=== PATIENT | female | born 1950 | race Caucasian/White ===

== ENCOUNTER 2022-10-01 17:43 | Inpatient (IN) | payer OTHER ==
--- OUTSIDE RECORDS SUMMARY | 2022-10-01 18:12 | XMS REPORT | Continuity of Care Document ---
:1950 Author Organization [facility] t Address [address] [facility] [address] [facility] [address] [place] [address] Care Team Providers Name Role Phone Sarah Bynum Attending Clinician Unavailable Payers Payer Name Policy Type Policy Number Effective Date Expiration Date S ource MEDICARE MB [id number] 2020 [facility] NOVITAS 00:00:[address] [facility] C1 [id number] 2020 [facility] and Accident 00:00:[address] [facility] MEDICARE MB [id number] 2020 [facility] NOVITAS 00:00:00 - [facility] [place] [id number] 2020 [facility] Life and 00:00:[facility] Problems Condition Condition Condition Status Onset Resolution Last Treating Co mments Source Name Details Category Date Date Treatment Clinician Date Status Migraine Problem Common migrainosu with Spirit s status - [facility] unspecifie d migraine type Anxiety Anxiety Problem [facility] Visual Visual Problem Common floaters, floaters, Spir it bilateral bilateral - CH I [facility] Gastroesop GERD Problem Commo n hageal (gastroeso Spirit reflux phageal - CHI disease reflux St disease) [facility] Elevated Elevated Problem Commo n blood-pres blood [facility] sure pressure - [facility] reading reading [facility] diagnosis [facility] [place] hypertensi on Left Left Problem Common bundle bundle Spirit branch branch - [facility] block block [facility] [id number] Adult Problem Common general [facility] medical - [facility] exam [facility] [id number] PVC Problem Common (premature Spirit ventricula - [facility] r [facility] Vitamin D Vitamin D Problem Com mon deficiency deficiency Sp dinah [facility] [id number] Depression Problem Co mmon with [facility] anxiety [facility] [id number] Seasonal Problem Comm on allergies [facility] [id number] Multiple Problem Comm on allergies [facility] Gastroesop Gastroesop Problem C ommon hageal hageal [facility] reflux reflux - [facility] disease disease [facility] esophagiti esophagiti Ne dical [facility] [id number] Gynecologi Problem Co mmon c exam [facility] normal [facility] [id number] Panic Problem Common attacks [facility] Allergies, Adverse Reactions, Alerts This patient has no known allergies or adverse reactions. Social History Social Habit Start Date Stop Date Quantity Comments Source History of Tobacco Use Co mmon [facility] Sex Assigned At Com mon [facility] Smoking Status Start Date Stop Date Source Never Smoker [facility] Medications Ordered Filled Start Stop Current Ordering Indication Dosage Frequency Signature Comments Components Source Medication Medication Date Date Medication? Clinician (SIG) Name Name Xanax 0.25 Xanax 0.25 2021-06 No 1{table QD Xanax 0.25 MG MG 1-10 t} MG 00:00: 00 Xanax 0.25 Xanax 0.25 2021-06 No 1{table QD Xanax 0.25 MG MG 1-10 t} MG 00:00: 00 Xanax 0.25 Xanax 0.25 2020-06 No 1{table QD Xanax 0.25 MG MG 1-05 t} MG 00:00: 00 Calcium Calcium No Calcium Bystolic Bystolic No 1{table QD Bystolic 2.5 MG 2.5 MG t} 2.5 MG Vitamin B-6 Vitamin B-6 No Vitamin B-6 Vitamin B Vitamin B No Vitamin B 12 12 12 Fish Oil Fish Oil No Fish Oil Xanax 0.25 Xanax 0.25 No 1{table QD Xanax 0.25 MG MG t} MG Protonix 40 Protonix 40 No Protonix MG MG 40 MG Pantoprazol Pantoprazol No Pantoprazo e Sodium 40 e Sodium 40 le Sodium MG MG 40 MG buPROPion buPROPion No buPROPion HCl ER (XL) HCl ER (XL) HCl ER 150 MG 150 MG (XL) 150 MG Calcium Calcium No Calcium Vitamin C Vitamin C No Vitamin C CoQ-10 CoQ-10 No CoQ-10 Zinc Zinc No Zinc Cymbalta 30 Cymbalta 30 No 1{capsu QD Cymbalta MG MG le} 30 MG Magnesium Magnesium No Magnesium Bystolic Bystolic No 1{table QD Bystolic 2.5 MG 2.5 MG t} 2.5 MG Vitamin D3 Vitamin D3 No Vitamin D3 buPROPion buPROPion No 1{table QD buPROPion HCl ER (XL) HCl ER (XL) t_in_th HCl ER 150 MG 150 MG e_morni (XL) 150 ng} MG Zinc Zinc No Zinc Vitamin C Vitamin C No Vitamin C buPROPion buPROPion No 1{table QD buPROPion HCl ER (XL) HCl ER (XL) t_in_th HCl ER 150 MG 150 MG e_morni (XL) 150 ng} MG Pantoprazol Pantoprazol No Pantoprazo e Sodium 40 e Sodium 40 le Sodium MG MG 40 MG CoQ-10 CoQ-10 No CoQ-10 Fish Oil Fish Oil No Fish Oil Calcium Calcium No Calcium Magnesium Magnesium No Magnesium Vitamin B Vitamin B No Vitamin B 12 12 12 Cymbalta 30 Cymbalta 30 No 1{capsu QD Cymbalta MG MG le} 30 MG Vitamin B-6 Vitamin B-6 No Vitamin B-6 Bystolic Bystolic No 1{table QD Bystolic 2.5 MG 2.5 MG t} 2.5 MG DULoxetine DULoxetine No DULoxetine HCl 30 MG HCl 30 MG HCl 30 MG Vitamin D3 Vitamin D3 No Vitamin D3 Protonix 40 Protonix 40 No Protonix MG MG 40 MG buPROPion buPROPion No buPROPion HCl ER (XL) HCl ER (XL) HCl ER 150 MG 150 MG (XL) 150 MG Zinc Zinc No Zinc Vitamin C Vitamin C No Vitamin C buPROPion buPROPion No 1{table QD buPROPion HCl ER (XL) HCl ER (XL) t_in_th HCl ER 150 MG 150 MG e_morni (XL) 150 ng} MG Pantoprazol Pantoprazol No Pantoprazo e Sodium 40 e Sodium 40 le Sodium MG MG 40 MG CoQ-10 CoQ-10 No CoQ-10 Fish Oil Fish Oil No Fish Oil Calcium Calcium No Calcium Magnesium Magnesium No Magnesium Vitamin B Vitamin B No Vitamin B 12 12 12 Cymbalta 30 Cymbalta 30 No 1{capsu QD Cymbalta MG MG le} 30 MG Vitamin B-6 Vitamin B-6 No Vitamin B-6 Bystolic Bystolic No 1{table QD Bystolic 2.5 MG 2.5 MG t} 2.5 MG DULoxetine DULoxetine No DULoxetine HCl 30 MG HCl 30 MG HCl 30 MG Vitamin D3 Vitamin D3 No Vitamin D3 Protonix 40 Protonix 40 No Protonix MG MG 40 MG buPROPion buPROPion No buPROPion HCl ER (XL) HCl ER (XL) HCl ER 150 MG 150 MG (XL) 150 MG Lexapro 10 Lexapro 10 No 1{table QD Lexapro 10 Common MG MG t} MG [facility] Bystolic Bystolic No 1{table QD Bystolic Common 2.5 MG 2.5 MG t} 2.5 MG [facility] BuPROPion BuPROPion No 1{table QD BuPROPion Common HCl ER (XL) HCl ER (XL) t_in_th HCl ER Spirit 150 MG 150 MG e_morni (XL) 150 - CH I ng} MG [facility] Cymbalta 20 Cymbalta 20 No 1{capsu QD Cymbalta Common MG MG le} 20 MG [facility] Pantoprazol Pantoprazol No Pantoprazo Common e Sodium 40 e Sodium 40 le Sodium Spirit MG MG 40 MG [facility] Xanax 0.25 Xanax 0.25 No 1{table QD Xanax 0.25 Common MG MG t} MG [facility] Protonix 40 Protonix 40 No Protonix Common MG MG 40 MG [facility] buPROPion buPROPion No 1{table QD buPROPion HCl ER (XL) HCl ER (XL) t_in_th HCl ER 150 MG 150 MG e_morni (XL) 150 ng} MG Lexapro 10 Lexapro 10 No 1{table QD Lexapro 10 MG MG t} MG Protonix 40 Protonix 40 No Protonix MG MG 40 MG Bystolic Bystolic No 1{table QD Bystolic 2.5 MG 2.5 MG t} 2.5 MG Pantoprazol Pantoprazol No Pantoprazo e Sodium 40 e Sodium 40 le Sodium MG MG 40 MG Cymbalta 20 Cymbalta 20 No 1{capsu QD Cymbalta MG MG le} 20 MG buPROPion buPROPion No 1{table QD buPROPion HCl ER (XL) HCl ER (XL) t_in_th HCl ER 150 MG 150 MG e_morni (XL) 150 ng} MG Protonix 40 Protonix 40 No Protonix MG MG 40 MG Xanax 0.25 Xanax 0.25 No 1{table QD Xanax 0.25 MG MG t} MG Magnesium Magnesium No Magnesium Vitamin B Vitamin B No Vitamin B 12 12 12 Zinc Zinc No Zinc Vitamin B-6 Vitamin B-6 No Vitamin B-6 Vitamin D3 Vitamin D3 No Vitamin D3 Vitamin C Vitamin C No Vitamin C buPROPion buPROPion No buPROPion HCl ER (XL) HCl ER (XL) HCl ER 150 MG 150 MG (XL) 150 MG Fish Oil Fish Oil No Fish Oil Calcium Calcium No Calcium CoQ-10 CoQ-10 No CoQ-10 Pantoprazol Pantoprazol No Pantoprazo e Sodium 40 e Sodium 40 le Sodium MG MG 40 MG Cymbalta 30 Cymbalta 30 No 1{capsu QD Cymbalta MG MG le} 30 MG Bystolic Bystolic No 1{table QD Bystolic 2.5 MG 2.5 MG t} 2.5 MG Cymbalta Cymbalta Yes Na Bynum 1 capsule [facility] Xanax Xanax Yes Na Bynum 1 tablet [facility] Bystolic Bystolic Yes Na Bynum 1 tablet [facility] Lexapro Lexapro Yes Na Bynum 1 tablet Co mmon [facility] Protonix Protonix Yes Na Bynum TAKE ONE Common -1 [facility] TABLET(S) - [facility] BY MOUTH St ONCE A DAY [facility] FOR 30 Medical DAYS. [place] buPROPion buPROPion No 1{table QD buPROPion HCl ER (XL) HCl ER (XL) t_in_th HCl ER 150 MG 150 MG e_morni (XL) 150 ng} MG Vitamin C Vitamin C No Vitamin C buPROPion buPROPion No buPROPion HCl ER (XL) HCl ER (XL) HCl ER 150 MG 150 MG (XL) 150 MG Zinc Zinc No Zinc Magnesium Magnesium No Magnesium Vitamin B Vitamin B No Vitamin B 12 12 12 CoQ-10 CoQ-10 No CoQ-10 Vitamin D3 Vitamin D3 No Vitamin D3 Cymbalta 30 Cymbalta 30 No 1{capsu QD Cymbalta MG MG le} 30 MG Pantoprazol Pantoprazol No Pantoprazo e Sodium 40 e Sodium 40 le Sodium MG MG 40 MG Xanax 0.25 Xanax 0.25 No 1{table QD Xanax 0.25 MG MG t} MG Fish Oil Fish Oil No Fish Oil Vitamin B-6 Vitamin B-6 No Vitamin B-6 Immunizations Ordered Immunization Filled Immunization Date Status Commen ts Source Name Name FluSensorTran FluAD 2021-04-16 Completed [facility] 11:59:00 - [facility] FluAD FluAD 2021-04-16 Completed [facility] 11:59:00 - [facility] FluAD FluAD 2021-04-16 Completed [facility] 11:59:00 - [facility] FluAD FluAD 2021-04-16 Completed [facility] 11:59:00 - [facility] FluAD FluAD 2021-04-16 Completed [facility] 11:59:00 - [facility] FluAD FluAD 2021-04-16 Completed [facility] 11:59:00 - [facility] Pneumovax (PPSV23) Pneumovax (PPSV23) 2018-07-30 Completed [facility] 12:31:00 - [facility] Pneumovax (PPSV23) Pneumovax (PPSV23) 2018-07-30 Completed [facility] 12:31:00 - [facility] Pneumovax (PPSV23) Pneumovax (PPSV23) 2018-07-30 Completed [facility] 12:31:00 [facility] Pneumovax (PPSV23) Pneumovax (PPSV23) 2018-07-30 Completed [facility] 12:31:00 - [facility] Pneumovax (PPSV23) Pneumovax (PPSV23) 2018-07-30 Completed [facility] 12:31:00 - [facility] Pneumovax (PPSV23) Pneumovax (PPSV23) 2018-07-30 Completed [facility] 12:31:00 - [facility] Pneumovax (PPSV23) Pneumovax (PPSV23) 2018-07-30 Completed [facility] 12:31:00 [facility] Pneumovax Pneumovax 2018-07-30 Completed [facility] 00:00:00 [facility] Vital Signs Vital Name Observation Time Observation Value Comments Source height 2022-04-21 09:40:00 63.00 [in_i] [facility] weight 2022-04-21 09:40:00 154.4 [lb_av] [facility] temperature 2022-04-21 09:40:00 97.5 [degF] [facility] bmi 2022-04-21 09:40:00 27.35 kg/m2 [facility] oximetry 2022-04-21 09:40:00 99 % [facility] respiratory rate 2022-04-21 09:40:00 16 /min Comm on [facility] blood pressure 2022-04-21 09:40:00 130 mm[Hg] [facility] - systolic [facility] blood pressure 2022-04-21 09:40:00 61 mm[Hg] [facility] diastolic [facility] height 2021-10-19 09:20:00 63.00 [in_i] [facility] weight 2021-10-19 09:20:00 159.0 [lb_av] [facility] temperature 2021-10-19 09:20:00 97.3 [degF] [facility] bmi 2021-10-19 09:20:00 28.16 kg/m2 [facility] oximetry 2021-10-19 09:20:00 98 % Common [facility] respiratory rate 2021-10-19 09:20:00 16 /min Comm on [facility] blood pressure 2021-10-19 09:20:00 137 mm[Hg] Common [facility] - systolic [facility] blood pressure 2021-10-19 09:20:00 66 mm[Hg] Common [facility] - diastolic [facility] blood pressure 2021-07-19 09:40:00 80 mm[Hg] Common [facility] - diastolic [facility] height 2021-07-19 09:40:00 63.00 [in_i] Common [facility] weight 2021-07-19 09:40:00 152 [lb_av] Common [facility] temperature 2021-07-19 09:40:00 97.4 [degF] Common [facility] bmi 2021-07-19 09:40:00 26.92 kg/m2 Common [facility] oximetry 2021-07-19 09:40:00 99 % Common [facility] respiratory rate 2021-07-19 09:40:00 15 /min Comm on [facility] blood pressure 2021-07-19 09:40:00 124 mm[Hg] Common [facility] systolic [facility] height 2020-11-03 10:00:00 63.00 [in_i] Common [facility] weight 2020-11-03 10:00:00 150.4 [lb_av] Common [facility] temperature 2020-11-03 10:00:00 97.3 [degF] Common [facility] bmi 2020-11-03 10:00:00 26.64 kg/m2 Common [facility] oximetry 2020-11-03 10:00:00 98 % Common [facility] respiratory rate 2020-11-03 10:00:00 16 /min Comm on [facility] blood pressure 2020-11-03 10:00:00 135 mm[Hg] Common [facility] - systolic [facility] blood pressure 2020-11-03 10:00:00 69 mm[Hg] Common [facility] - diastolic [facility] Procedures This patient has no known procedures. Encounters Start End Encounter Admission Attending Care Care Encounter Source Date/Time Date/Time Type Type Clinicians Facility Department ID 2022-04-21 Outpatient Bynum, Na STLMLC STLMLC [id number] Common 09:27:00 [facility] 2022-04-19 Outpatient Bynum, Na STLMLC STLMLC [id number] Common 08:02:00 [facility] 2021-12-28 Outpatient Bynum, Na STLMLC STLMLC [id number] Common 16:12:00 [facility] 2021-10-26 Outpatient Bynum, Na STLMLC STLMLC [id number] Common 09:27:01 [facility] 2021-10-15 Outpatient Bynum, Na STLMLC STLMLC [id number] Common 08:30:01 [facility] 2021-07-19 Outpatient Bynum, Na STLMLC STLMLC [id number] Common 08:33:01 [facility] 2021-07-07 Outpatient Bynum, Na STLMLC STLMLC [id number] 2 Common 14:08:11 [id number] [facility] 2021-07-07 Outpatient Bynum, Na STLMLC STLMLC [id number] Common 13:07:10 [id number] [facility] 2021-07-07 Outpatient Bynum, Na STLMLC STLMLC [id number] 2 Common 12:43:48 [id number] [facility] 2021-07-07 Outpatient Bynum, Na STLMLC STLMLC [id number] 2 Common 12:06:42 [id number] [facility] 2021-07-07 Outpatient Bynum, Na STLMLC STLMLC [id number] Common 11:22:36 [id number] [facility] 2022-05-23 2022-05-23 (TEL) STLMLC STLMLC [id number] Co mmon 00:00:00 00:00:00 [facility] 2022-04-21 2022-04-21 OFFICE STLMLC STLMLC [id number] Co mmon 00:00:00 00:00:00 VISIT Spirit ESTAB PT - [facility] LEVEL 4 [facility] 2021-10-19 2021-10-19 OFFICE STLMLC STLMLC [id number] Co mmon 00:00:00 00:00:00 VISIT EST Spir it PT LEVEL 3 [facility] 2021-07-23 2021-07-23 (TEL) STLMLC STLMLC [id number] Co mmon 00:00:00 00:00:00 [facility] 2021-07-19 2021-07-19 OFFICE STLMLC STLMLC [id number] Co mmon 00:00:00 00:00:00 VISIT EST Spir it PT LEVEL 3 [facility] 2021-04-30 2021-04-30 (TEL) STLMLC STLMLC [id number] Co mmon 00:00:00 00:00:00 [facility] 2020-11-03 2020-11-03 OFFICE STLMLC STLMLC [id number] Co mmon 00:00:00 00:00:00 VISIT EST Spir it PT LEVEL 3 [facility] 2020-05-04 2020-05-04 Outpatient STLMLC STLMLC [id number] Common 00:00:00 00:00:00 [facility] 2020-04-08 2020-04-08 Outpatient STLMLC STLMLC [id number] Common 00:00:00 00:00:00 [facility] 2019-11-01 2019-11-01 [facility] [id number] Common 11:40:00 11:40:[address] [facility] 2019-08-08 2019-08-08 [facility] [id number] Common 15:44:00 15:44:[address] [facility] [facility] 2019-04-16 2019-04-16 [facility] [id number] Common 09:40:00 09:40:[address] [facility] [facility] 2019-03-07 2019-03-07 [facility] [id number] Common 09:00:00 09:00:[address] [facility] 2018-10-05 2018-10-05 [facility] [id number] Common 10:16:00 10:16:[address] [facility] 2018-07-30 2018-07-30 [facility] [id number] Common 10:45:00 10:45:[address] [facility] [facility] 2018-02-26 2018-02-26 [facility] [id number] Common 09:45:00 09:45:[address] [facility] 2018-01-26 2018-01-26 [facility] [id number] Common 10:00:00 10:00:[address] [facility] 2017-11-29 2017-11-29 [facility] [id number] Common 14:15:00 14:15:[address] [facility] 2017-10-11 2017-10-11 [facility] [id number] Common 08:30:00 08:30:[address] [facility] Results This patient has no known results.
[2022-10-01 19:04] LABS: Absolute Lymphocytes (CBC) 2.6 K/uL (0.7-4.9); Hematocrit 33.9 % (36.0-45.0); Lymphocytes % 13.7 % (15.3-44.8); MCV 83.1 fL (80-100); MPV 7.3 fL (7.6-11.3); RBC Red Blood Cell Count 4.08 M/uL (3.86-4.86)
[2022-10-01 19:17] LABS: Albumin 3.3 g/dL (3.4-5.0); Bilirubin Total 0.5 mg/dL (0.2-1.0); Potassium 3.9 mEq/L (3.5-5.1); Protein, Total 7.7 g/dL (6.4-8.2)
[2022-10-01] MEDS ORDERED: ONDANSETRON 4 MG/2 ML VIAL ONE (19:18)
[2022-10-01] MEDS ORDERED: NA CHLORIDE 0.9% 0 ML ONE (19:18)
[2022-10-01] MEDS ORDERED: MORPHINE 4 MG/ML SYR ONE (19:18)
[2022-10-01] MEDS ORDERED: CLINDAMYCIN 600MG/D5W 50 ML IV ONE (19:28)
[2022-10-01] MEDS ORDERED: NA CHLORIDE 0.9% 1,000 ML ONE (19:50)
--- NOTE | 2022-10-01 20:31 | RAD REPORT ---
EXAM DESCRIPTION: CT - Soft Tissue Neck W/Contr CLINICAL HISTORY: Tayo's angina vs. submandibular abscess COMPARISON: No comparisons TECHNIQUE All CT scans are performed using dose optimization technique as appropriate and may includ e automated exposure control or mA/KV adjustment according to patient size. FINDINGS: Multiloculated fluid collection medially all along the body of the mandible in the region of the recently extracted right mandibular molar. The fluid collection measures 3.4 x 2 x 2 cm . Ther e is some fluid that tracks medially along the floor of the mouth. It does not have an enhancing rim and does not cross midline. There is some mass effect on the posterior oropharynx. Epiglottis and aryepiglottic folds are normal. Piriform sinuses are well aerated. The vocal cords are normal in appearance. There is some fluid around the right submandibular gland. Parotid glands are intact. Upper lung hand are clear. Included intracranial contents are unremarkable. Multilevel degenerative changes are present in the spine. IMPRESSION: Abscess medially along the right aspect of the mandible near the location of the recentl y extracted molar. Some fluid tracks medially along the floor of the mouth which is concerning for ea rly Tayo's angina. There is mass effect and mild narrowing of the airway at the posterior orophary nx
--- NOTE | 2022-10-01 21:06 | EDPHYS ---
Physician Documentation [facility] Name: Inga Magallanes Age: 72 yrs Sex: Female : 1950 Arrival Date: 10/01/2022 Time: 17:43 Bed 19 Private MD: ED Physician Haresh Davidson HPI: 10/01 18:00 This 72 yrs old Female presents to ER via Ambulatory with complaints of Mouth Problem. jh7 18:00 The patient presents with pain, redness, swelling. The problem is located in the lower jh7 right third molar (#32). 72-year-old female sent by Dr. Kan. He reports that he extracted an abscessed tooth last week and put the patient on antibiotics. She is complained of jaw pain and swelling worsening over the past week. He states that he would like her to get lab work, IV antibiotics, and a CT scan to rule out submandibular abscess and Ludewig's angina.. Historical: - Allergies: 18:00 Z-PAC; vg1 - Home Meds: 18:00 Protonix Oral [Active]; Lipitor Oral [Active]; Bystolic oral [Active]; vg1 - PMHx: 18:00 PVC; vg1 - Immunization history:: Client reports receiving the 2nd dose of the Covid vaccine. - Social history:: Smoking status: Patient denies any tobacco usage or history of. ROS: 18:00 Constitutional: Negative for fever, chills, and weight loss, Eyes: Negative for injury, jh7 pain, redness, and discharge, Neck: Negative for injury, pain, and swelling, Cardiovascular: Negative for chest pain, palpitations, and edema, Respiratory: Negative for shortness of breath, cough, wheezing, and pleuritic chest pain, Back: Negative for injury and pain, Skin: Negative for injury, rash, and discoloration, Neuro: Negative for headache, weakness, numbness, tingling, and seizure. 18:00 ENT: Positive for dental pain, jaw swelling. 18:00 All other systems are negative. Exam: 18:00 Constitutional: This is a well developed, well nourished patient who is awake, alert, jh7 and in no acute distress. Head/Face: Normocephalic, atraumatic. Neck: Trachea midline, no thyromegaly or masses palpated, and no cervical lymphadenopathy. Supple, full range of motion without nuchal rigidity, or vertebral point tenderness. No Meningismus. Cardiovascular: Regular rate and rhythm with a normal S1 and S2. No gallops, murmurs, or rubs. Normal PMI, no JVD. No pulse deficits. Respiratory: Lungs have equal breath sounds bilaterally, clear to auscultation and percussion. No rales, rhonchi or wheezes noted. No increased work of breathing, no retractions or nasal flaring. Back: No spinal tenderness. No costovertebral tenderness. Full range of motion. Skin: Warm, dry with normal turgor. Normal color with no rashes, no lesions, and no evidence of cellulitis. MS/ Extremity: Pulses equal, no cyanosis. Neurovascular intact. Full, normal range of motion. Neuro: Awake and alert, GCS 15, oriented to person, place, time, and situation. Normal gait. 18:00 ENT: Dental exam: missing teeth, specifically the lower right third molar (#32), +trismus, R submandibular swelling and TTP. 18:00 Head/face: Noted is erythema, that is mild, of the right jaw, swelling, that is jh7 moderate, of the right jaw. Vital Signs: 17:57 BP 143 / 69; Pulse 74; Resp 16; Temp 99.8(O); Pulse Ox 98% on R/A; Weight 69.85 kg; vg1 Height 5 ft. 3 in. ; Pain 10/10; 19:15 BP 159 / 89; Pulse 64; Resp 16; Pulse Ox 98% on R/A; jb4 20:28 BP 156 / 69; Pulse 77; Resp 16; Pulse Ox 99% on R/A; jb4 17:57 Body Mass Index 27.28 (69.85 kg, 160.02 cm) vg1 17:57 Pain Scale: Adult vg1 MDM: 17:44 Patient medically screened. 7 10/02 03:35 Differential diagnosis: dental caries, dental abscess. Data reviewed: vital signs, ms3 nurses notes, lab test result(s), radiologic studies, and as a result, I will admit patient. Consideration of Admission/Observation Patient was admitted/placed on observation. Management of patient was discussed with the following: Hospitalist: BURT Winn- she accepts patient on behalf of Dr Moreno. Patient Services Manager: Dr Badillo- Patient to be NPO after midnight. He will drain abscess tomorrow.. I considered the following discharge prescriptions or medication management in the emergency department Medications were administered in the Emergency Department. See MAR. Independent interpretation of the following test(s) in the Emergency Department. Counseling: I had a detailed discussion with the patient and/or guardian regarding: the historical points, exam findings, and any diagnostic results supporting the discharge/admit diagnosis, lab results, radiology results, the need for further work-up and treatment in the hospital. ED course: Discussed labs and CT finding with patient and her . Discussed necessity for admission and they understand and agree with plan. All questions were answered. Patient remains in stable condition, speaking full sentences, without respiratory distress. 10/01 17:50 Order name: CMP; Complete Time: 19:17 [facility] 10/01 17:50 Order name: CBC with Diff; Complete Time: 19:17 [facility] 10/01 17:50 Order name: Blood Culture Adult (2) [facility] 10/01 17:50 Order name: Lactate w/ 2H reflex if indic.; Complete Time: 19:17 [facility] 10/01 18:47 Order name: Soft Tissue Neck W/Contr; Complete Time: 20:59 EDMS Administered Medications: 10/01 19:20 Drug: NS 0.9% IV 1000 ml Route: IV; Rate: 1 bolus; Site: right antecubital; sp5 19:20 Drug: Ondansetron IVP 4 mg Route: IVP; Site: right antecubital; sp5 19:24 Drug: morphine IVP or IV 4 mg Route: IVP; Infused Over: 4 mins; Site: right antecubital;sp5 19:28 Drug: Clindamycin IVPB 600 mg Route: IVPB; Infused Over: 30 mins; Site: right jb4 antecubital; 19:46 Not Given (Physician Discretion; in error): NS 0.9% IV 1000 ml IV at 1 bolus Per [facility] protocol; 1000 mL bolus 21:31 Drug: Acetaminophen PO 1000 mg Route: PO; jb4 Disposition: 10/02 03:34 Co-signature as Attending Physician, Haresh Davidson DO. ms3 Disposition Summary: 10/01/22 21:05 Hospitalization Ordered Hospitalization Status: Inpatient Admission ms3 Provider: Alexis Moreno ms3 Location: Telemetry/MedSurg (Inpatient) ms3 Condition: Stable ms3 Problem: new ms3 Symptoms: are unchanged ms3 Bed/Room Type: Standard ms3 Room Assignment: 220(10/01/22 21:51) wm Diagnosis - Mandibular abscess ms3 - Ludwigs Angina ms3 Forms: - Medication Reconciliation Form ms3 - SBAR form ms3 Signatures: Dispatcher [employer] EDMS Raphael Adair, RN RN jb4 Gudelia Yost RN RN vg1 Haresh Davidson, DO ms3 Patricia Banda wm Solange Chau, BORING MILL OPERATOR FOR METAL BORING MILL OPERATOR FOR METAL jh7 Sima Garcia, PAEva PAEva oneal4 Neela Nunez, RN RN sp5 Corrections: (The following items were deleted from the chart) 10/01 18:02 18:00 Allergies: Amoxicillin; vg1 vg1 18:45 18:00 ENT: Dental exam: missing teeth, specifically the lower right third molar (#32), jh7 +trismus, R submandibular swelling and TTP. jh7 18:47 18:18 Facial Bones W/ Con \T\ MPR+CT.RAD.BRZ ordered. EDWI EDMS 21:51 21:05 ms3 wm
--- NOTE | 2022-10-01 21:06 | ER ---
Nurse's Notes [facility] Name: Inga Magallanes Age: 72 yrs Sex: Female : 1950 Arrival Date: 10/01/2022 Time: 17:43 Bed 19 Private MD: Diagnosis: Mandibular abscess;Ludwigs Angina Presentation: 10/01 17:57 Chief complaint: Patient states: August 10 was dx with TMJ;Tooth extracted bottom right vg1 side of Jaw on 09-23-22. Was put on Amoxicillin and then changed to Clindamycin on 09-28-22. Right side of pt cheek appears to be swollen and red. Coronavirus screen: Vaccine status: Patient reports receiving the 2nd dose of the covid vaccine. Client denies travel out of the [place] in the last 14 days. Ebola Screen: Patient negative for fever greater than or equal to 101.5 degrees Fahrenheit, and additional compatible Ebola Virus Disease symptoms Patient denies exposure to infectious person. Patient denies travel to an Ebola-affected area in the 21 days before illness onset. Initial Sepsis Screen: Does the patient meet any 2 criteria? No. Patient's initial sepsis screen is negative. Does the patient have a suspected source of infection? No. Patient's initial sepsis screen is negative. Risk Assessment: Do you want to hurt yourself or someone else? Patient reports no desire to harm self or others. Onset of symptoms was August 10, 2022. 17:57 Method Of Arrival: Ambulatory vg1 17:57 Acuity: TAMMY 3 vg1 Triage Assessment: 18:00 General: Appears uncomfortable, Behavior is calm, cooperative. Pain: Complains of pain vg1 in lower right third molar and right side of jaw Pain currently is 10 out of 10 on a pain scale. Pain began x 1 month. EENT: Oral mucosa is moist. Absence of teeth noted - lower right third molar (#32). Historical: - Allergies: 18:00 Z-PAC; vg1 - Home Meds: 18:00 Protonix Oral [Active]; Lipitor Oral [Active]; Bystolic oral [Active]; vg1 - PMHx: 18:00 PVC; vg1 - Immunization history:: Client reports receiving the 2nd dose of the Covid vaccine. - Social history:: Smoking status: Patient denies any tobacco usage or history of. Screenin:10 [facility] ED Fall Risk Assessment (Adult) History of falling in the last 3 months, ph including since admission No falls in past 3 months (0 pts) Confusion or Disorientation No (0 pts) Intoxicated or Sedated No (0 pts) Impaired Gait No (0 pts) Mobility Assist Device Used No (0 pt) Altered Elimination No (0 pt) Score/Fall Risk Level 0 - 2 = Low Risk Oriented to surroundings, Maintained a safe environment, Hourly rounding (assess needs \T\ fall precautionary measures) done. Abuse screen:. Nutritional screening: No deficits noted. Tuberculosis screening: No symptoms or risk factors identified. Assessment: 19:08 General: Appears in no apparent distress. slender, Behavior is calm, cooperative, ph appropriate for age. Pain: Complains of pain in right jaw. Neuro: Level of Consciousness is awake, alert, obeys commands, Oriented to person, place, time, situation. Cardiovascular: Capillary refill < 3 seconds in bilateral fingers Patient's skin is warm and dry. Respiratory: Airway is patent Respiratory effort is even, unlabored. EENT: swelling and redness noted to R jaw. Derm: Skin is pink, warm \T\ dry. 20:26 Reassessment: Patient appears in no apparent distress at this time. Patient and/or jb4 family updated on plan of care and expected duration. Pain level reassessed. Patient is alert, oriented x 3, equal unlabored respirations, skin warm/dry/pink. Vital Signs: 17:57 BP 143 / 69; Pulse 74; Resp 16; Temp 99.8(O); Pulse Ox 98% on R/A; Weight 69.85 kg; vg1 Height 5 ft. 3 in. ; Pain 10/10; 19:15 BP 159 / 89; Pulse 64; Resp 16; Pulse Ox 98% on R/A; jb4 20:28 BP 156 / 69; Pulse 77; Resp 16; Pulse Ox 99% on R/A; jb4 17:57 Body Mass Index 27.28 (69.85 kg, 160.02 cm) vg1 17:57 Pain Scale: Adult vg1 ED Course: 17:44 Patient arrived in ED. jj6 17:44 [facility] FNP [facility]. jh7 17:44 Rosalio Mccurdy MD is Attending Physician. 7 18:00 Triage completed. vg1 18:00 Arm band placed on. vg1 18:12 Zoë Zamora, EBONI is Primary Nurse. ph 18:45 First set of blood cultures drawn by vt. kr3 18:47 Inserted saline lock: 22 gauge in left antecubital area, using aseptic technique. Blood kr3 collected. 19:05 Primary Nurse role handed off by Zoë Zamora RN jl7 19:10 Patient has correct armband on for positive identification. Bed in low position. Call ph light in reach. Side rails up X2. Pulse ox on. NIBP on. 20:16 Soft Tissue Neck W/Contr In Process Unspecified. EDMS 20:26 Raphael Adair, EBONI is Primary Nurse. jb4 20:59 Attending Physician role handed off by Rosalio Mccurdy MD ms3 20:59 Haresh Davidson DO is Attending Physician. ms3 21:05 Alexis Moreno MD is Hospitalizing Provider. ms3 Administered Medications: 19:20 Drug: NS 0.9% IV 1000 ml Route: IV; Rate: 1 bolus; Site: right antecubital; sp5 19:20 Drug: Ondansetron IVP 4 mg Route: IVP; Site: right antecubital; sp5 19:24 Drug: morphine IVP or IV 4 mg Route: IVP; Infused Over: 4 mins; Site: right antecubital;sp5 19:28 Drug: Clindamycin IVPB 600 mg Route: IVPB; Infused Over: 30 mins; Site: right jb4 antecubital; 19:46 Not Given (Physician Discretion; in error): NS 0.9% IV 1000 ml IV at 1 bolus Per [facility] protocol; 1000 mL bolus 21:31 Drug: Acetaminophen PO 1000 mg Route: PO; jb4 Medication: 19:10 VIS not applicable for this client. ph Outcome: 21:05 Decision to Hospitalize by Provider. ms3 22:38 Patient left the ED. kd3 Signatures: Dispatcher [employer] EDMS Zoë Zamora, RN RN Raphael Adair, RN RN jb4 Pavithra Gonzales RN RN jl7 Gudelia Yost RN RN 1 Haresh Davidson DO DO ms3 Solange Lopez jj6 Ban Sorensen RN RN kd3 Solange Chau, MIRROR FRAMER MIRROR FRAMER jh7 Thais Rodriguez RN RN kr3 Neela Nunez RN RN sp5 Corrections: (The following items were deleted from the chart) 18:02 18:00 Allergies: Amoxicillin; vg1 vg1 19:25 19:24 morphine IVP or IV 4 mg IVP in right antecubital over 4 mins sp5 sp5 19:27 19:26 Ondansetron IVP 4 mg IVP in right antecubital sp5 sp5
--- NOTE | 2022-10-01 21:23 | P.HP ---
Certification for Inpatient Patient admitted to: Inpatient With expected LOS: <2 Midnights Patient will require the following post-hospital care: None Practitioner: I am a practitioner with admitting privileges, knowledge of patient current condition, hospital course, and medical plan of care. Services: Services provided to patient in accordance with Admission requirements found in Title 42 Section 412.3 of the Code of Federal Regulations Patient History Date of Service: 10/01/22 Primary Care Provider: Fletcher Reason for admission: Mandibular Abscess History of Present Illness: Ms. Magallanes is a 72 year old female with past medical history of hypertension, hyperlipemia, and GERD who was sent to the emergency department by oral surgeon. Patient had lower right third molar (#32) extracted last week, taking amoxicillin then clindamycin. She comes in with worsening pain and swelling of that region. CT soft tissue neck showed " Abscess medially along the right aspect of the mandible near the location of the recently extracted molar. Some fluid tracks medially along the floor of the mouth which is concerning for early Tayo's angina. There is mass effect and mild narrowing of the airway at the posterior oropharynx." Dr. Badillo was contacted and wishes for patient to be admitted to hospitalist with IV antibiotics, NPO at midnight, and he will drain the abscess in the OR tomorrow. Allergies azithromycin [From Zithromax Z-Chaitanya] Adverse Reaction (Verified 08/21/16 17:55) fainting Home medications list reviewed: Yes Home Medications: Buproprion S.r. [Wellbutrin Sr*] 75 mg PO DAILY 08/21/16 Pantoprazole [Protonix Tab*] 40 mg PO DAILY 08/21/16 - Past Medical/Surgical History Diabetic: No -: GERD -: Hypertension -: Hyperlipidemia -: Depression -: left breast biopsy Psychosocial/ Personal History: Patient is . - Family History Father -: Heart disease Mother -: Other (see notes) Notes: alzheimers - Social History Smoking Status: Never smoker Alcohol use: No CD- Drugs: No Caffeine use: Yes Place of Residence: Home Review of Systems ENT: Mouth Pain, Mouth Swelling Physical Examination - Vital Signs Temperature: 99.8 F Blood Pressure: 156/69 Pulse: 77 Respirations: 16 Pulse Ox (%): 99 - Physical Exam General: Alert, In no apparent distress Neck: Supple, 2+ carotid pulse no bruit Respiratory: Clear to auscultation bilaterally, Normal air movement Cardiovascular: Regular rate/rhythm, Normal S1 S2 Gastrointestinal: Normal bowel sounds, No tenderness Musculoskeletal: No tenderness Integumentary: No rashes Neurological: Normal speech, Normal affect - Studies Laboratory Data (last 24 hrs) 10/01/22 18:41: WBC 19.30 H, Hgb 11.1 L, Hct 33.9 L, Plt Count 424 H 10/01/22 18:41: Sodium 137, Potassium 3.9, BUN 16, Creatinine 0.91, Glucose 105, Total Bilirubin 0.5, AST 14 L, ALT 19, Alkaline Phosphatase 84 Assessment and Plan - Problems (Diagnosis) (1) Mandibular abscess Current Visit: Yes Status: Acute (2) GERD (gastroesophageal reflux disease) Current Visit: Yes Status: Chronic Qualifiers: Esophagitis presence: without esophagitis Qualified Code(s): K21.9 - G shaun-esophageal reflux disease without esophagitis (3) Hypertension Current Visit: Yes Status: Chronic Qualifiers: Hypertension type: primary hypertension Qualified Code(s): I10 - Essential (primary) hypertension (4) Hyperlipidemia Current Visit: Yes Status: Chronic Qualifiers: Hyperlipidemia type: unspecified Qualified Code(s): E78.5 - Hyperlipidemia, unspecified - Plan Patient is admitted for further management of mandibular abscess/early Tayo's angina. Continue IV clindamycin and unasyn per Dr. Badillo. She does meet sepsis criteria with source of infection, WBC 19, and temp 101.6. Blood cultures obtained. Lactate WNL. BP stable. NPO. Plan for drainage of abscess in OR tomorrow by Dr. Badillo. IV hydration. Pain medications as needed. Reconcile and continue home medications when appropriate. Monitor and replete electrolytes per protocol. VTE prophylaxis. Full code. Discharge Plan: Home Plan to discharge in: 48 Hours - Advance Directives Does patient have a Living Will: No Does patient have a Durable POA for Healthcare: No - Code Status/Comfort Care Code Status Assessed: Yes Code Status: Full Code Physician Review: Patient Assessed, Agree with Above Assessment and Plan Critical Care: No Time Spent Managing Pts Care (In Minutes): 50
[2022-10-01] MEDS ORDERED: ACETAMINOPHEN 500 MG TAB ONE (21:32)
[2022-10-01] MEDS ORDERED: ONDANSETRON 4 MG/2 ML VIAL IV PRN (22:36)
[2022-10-01] MEDS: AMPICILLIN/SULBACT 3 GM in NA CHLORIDE 0.9% 100 ML IVPB SCH (23:10)
[2022-10-01] MEDS: NA CHLORIDE 0.9% 1,000 ML IV SCH (23:10)
[2022-10-01] MEDS: MORPHINE 4 MG/ML SYR IV PRN (23:11)
[2022-10-01 23:28] VITALS: BMI 27.3
[2022-10-02] MEDS ORDERED: CLINDAMYCIN INJ 600 MG in NA CHLORIDE 0.9% 50 ML IV SCH (03:00)
[2022-10-02] MEDS ORDERED: CLINDAMYCIN 600MG/D5W 100 ML IV SCH (03:00)
[2022-10-02] MEDS ORDERED: CLINDAMYCIN 600MG/D5W 50 ML IV ONE (04:32)
[2022-10-02] MEDS: CLINDAMYCIN 600MG/D5W 50 ML IV SCH ×3 (04:41→18:53)
[2022-10-02] MEDS: MORPHINE 4 MG/ML SYR IV PRN (04:42)
[2022-10-02 06:16] LABS: Absolute Lymphocytes (CBC) 2.5 K/uL (0.7-4.9); Hematocrit 31.7 % (36.0-45.0); Lymphocytes % 12.7 % (15.3-44.8); MCV 83.6 fL (80-100); MPV 8.1 fL (7.6-11.3); RBC Red Blood Cell Count 3.79 M/uL (3.86-4.86)
[2022-10-02] MEDS: AMPICILLIN/SULBACT 3 GM in NA CHLORIDE 0.9% 100 ML IVPB SCH ×3 (06:18→22:34)
[2022-10-02 06:29] LABS: Magnesium 2.2 mg/dL (1.6-2.4); Phosphorus 3.1 mg/dL (2.5-4.9); Potassium 3.9 mEq/L (3.5-5.1)
[2022-10-02] MEDS: NA CHLORIDE 0.9% 1,000 ML IV SCH ×3 (08:36→18:53)
[2022-10-02] MEDS ORDERED: POTASSIUM 25 MEQ EFFERV TAB PO ONE (09:00)
[2022-10-02] MEDS ORDERED: PNEUMOCOCCAL VACCINE 0.5 ML IMVAC ONE (09:00)
[2022-10-02] MEDS ORDERED: SUCCINYLCHOLINE 20 MG/ML (10 ML) IV ONE (10:02)
[2022-10-02] MEDS ORDERED: FENTANYL CITR 100 MCG/2 ML ONE (10:08)
[2022-10-02] MEDS ORDERED: propofoL 200 MG/20 ML VIAL IV ONE (10:08)
[2022-10-02] MEDS ORDERED: LIDOCAINE 1% W/EPI 1:100,000 10 ML VIAL ONE (10:09)
[2022-10-02] MEDS: BUPIVACAINE 0.5% PF 10 ML VIAL ONE ×2 (10:09→10:36)
[2022-10-02] MEDS ORDERED: dexAMETHasone 10 MG/ML VIAL ONE (10:44)
[2022-10-02] MEDS ORDERED: ONDANSETRON 4 MG/2 ML VIAL ONE (10:45)
[2022-10-02] MEDS ORDERED: KETOROLAC 30 MG/ML INJ ONE (10:45)
[2022-10-02] MEDS ORDERED: Ringers Lactate 1,000 ML IV ONE (10:50)
[2022-10-03] MEDS: CLINDAMYCIN 600MG/D5W 50 ML IV SCH ×2 (02:30→11:55)
[2022-10-03] MEDS: NA CHLORIDE 0.9% 1,000 ML IV SCH ×4 (02:30→16:57)
[2022-10-03] MEDS: AMPICILLIN/SULBACT 3 GM in NA CHLORIDE 0.9% 100 ML IVPB SCH ×3 (06:20→23:41)
[2022-10-03 08:56] LABS: Absolute Lymphocytes (CBC) 1.8 K/uL (0.7-4.9); Hematocrit 32.1 % (36.0-45.0); Lymphocytes % 7.7 % (15.3-44.8); MCV 82.7 fL (80-100); MPV 7.6 fL (7.6-11.3); RBC Red Blood Cell Count 3.88 M/uL (3.86-4.86)
[2022-10-03 10:10] LABS: Specific Gravity 1.029 (1.005-1.030); Urine Bacteria <20 /HPF (<20); Urine Bilirubin NEGATIVE (Negative); Urine Blood Trace (Negative); Urine Clarity Clear (Clear); Urine Color Light-Yellow (Yellow); Urine Glucose NEGATIVE (Negative); Urine Mucus Slight /HPF (None Seen); Urine Protein TRACE (Negative); Urine Urobilinogen Normal (Normal); Urine pH 6.5 (5.0-7.0)
[2022-10-03 10:28] LABS: Anisocytosis SLIGHT; Blood Morphology Comment NOTED (NOT SEEN); Platelet Estimate INCR; Poikilocytosis SLIGHT
--- NOTE | 2022-10-03 11:31 | P.CNS ---
Date of Consult: 10/03/22 Reason for Consult: Mandibular Abscess Requesting Physician: Pieter Escobar Primary Care Provider: Fletcher Chief Complaint: Mandibular Abscess History of Present Illness: Patient is a 72 yo female with a PMH of hypertension and hyperlipidemia. Patient presented to the ED for worsening right jaw pain and swelling. Patient reports having right molar extracted last week which has been worsening in pain and swelling. CT neck revealed "Abscess medially along the right aspect of the mandible near the location of the recently extracted molar. Some fluid tracks medially along the floor of the mouth which is concerning for early Tayo's angina. There is mass effect and mild narrowing of the airway at the posterior oropharynx." Patient underwent incision and drainage of right mandibular abscess on 10/02. Patient is currently sitting in bed, alert and oriented x3, not in distress. Breathing comfortably on room air. No complaints at this time. and daughter at bedside. Allergies azithromycin [From Zithromax Z-Chaitanya] Adverse Reaction (Verified 08/21/16 17:55) fainting Home medications list reviewed: Yes Home Medications: Pantoprazole [Protonix Tab*] 40 mg PO DAILY 08/21/16 Atorvastatin Calcium [Lipitor*] 10 mg PO BEDTIME 10/01/22 Nebivolol HCl [Bystolic*] 5 mg PO DAILY 10/01/22 - Past Medical/Surgical History Diabetic: No -: GERD -: Hypertension -: Hyperlipidemia -: Depression -: left breast biopsy Psychosocial/ Personal History: Patient is . - Family History Father Medical History: Heart disease Mother Medical History: Other (see notes) Notes: alzheimers - Social History Smoking Status: Never smoker Alcohol use: No CD- Drugs: No Caffeine use: Yes Place of Residence: Home Review of Systems 10-point ROS is otherwise unremarkable ENT: As per HPI Physical Examination Temp Pulse Resp BP Pulse Ox 97.6 F 62 14 189/76 H 98 10/03/22 08:00 10/03/22 08:00 10/03/22 08:00 10/03/22 08:00 10/03/22 08:00 General: Alert, In no apparent distress, Oriented x3 HEENT: Atraumatic, Normocephalic, Other (antonella drain s/p mandibular abscess drainage) Respiratory: Clear to auscultation bilaterally, Normal air movement Cardiovascular: No edema, Normal pulses Capillary refill: <2 Seconds Gastrointestinal: Normal bowel sounds, Soft and benign, Non-distended Musculoskeletal: No clubbing, No swelling Integumentary: No rashes, No breakdown Neurological: Normal speech, Normal tone, Normal affect Laboratory Data - Reviewed Microbiology Data - Blood cultures 10/01: no growth to date - Abscess culture mandibular: pending Imagings Data: - Reviewed Conclusions/Impression: Problem List - Abscess, right mandibular/submandibular - Hypertension - Hyperlipidemia Right Mandibular Abscess - s/p incision and drainage of right mandibular abscess 10/02 - Currently on Unasyn and Clindamycin (started 10/01) - Afebrile - Leukocytosis (WBC 23.3) Recommendations - Clindamycin discontinued -> started on Doxycycline (10/03) - Continue Unasyn (started 10/01) - Monitor WBC and fever trends ID will follow up and monitor patient closely. Case discussed with Ellen Patel
--- NOTE | 2022-10-03 11:56 | P.PN ---
Subjective Date of Service: 10/02/22 Primary Care Provider: Fletcher Chief Complaint: Mandibular Abscess Patient was admitted last night with right-sided mid mandibular abscess failed outpatient therapy scheduled for surgery Review of Systems Unremarkable Physical Examination - Vital Signs Temperature: 97.6 F Blood Pressure: 189/76 Pulse: 62 Respirations: 14 Pulse Ox (%): 98 - Physical Exam General: Alert, In no apparent distress, Oriented x3 Neck: Other (Right side of the mandibular area appears to be swollen) Assessment And Plan - Current Problems (Diagnosis) (1) Mandibular abscess Current Visit: Yes Status: Acute Plan: Patient is 72 years of age admitted with right-sided mandibular abscess failed outpatient therapy scheduled for surgery today continue with Unasyn and clindamycin for now Labs chemistries all reviewed white count is mildly elevated/CT of the neck below Abscess medially along the right aspect of the mandible near the location of the recently extracted molar. Some fluid tracks medially along the floor of the mouth which is concerning for early Tayo's angina. There is mass effect and mild narrowing of the airway at the posterior oropharyn Physician Review: Patient Assessed, Agree with Above Assessment and Plan
--- NOTE | 2022-10-03 13:16 | P.PN ---
Subjective Date of Service: 10/03/22 Primary Care Provider: Fletcher Chief Complaint: Mandibular Abscess POD #1 from incision and drainage of submandibular abscess. She tolerated the procedure well, without any apparent complications. Her leukocytosis is slightly worse today - appreciate oromaxillofacial surgery recommendations. She denies any chest pain, palpitations, or shortness of breath. Review of Systems 10-point ROS is otherwise unremarkable Physical Examination - Vital Signs Temperature: 97.6 F Blood Pressure: 139/65 Pulse: 71 Respirations: 14 Pulse Ox (%): 98 - Physical Exam General: Alert, In no apparent distress, Oriented x3 HEENT: Atraumatic, Mucous membr. moist/pink, Other (surgical site at base of mandible is covered in surgical dressing.), Sclerae nonicteric Respiratory: Clear to auscultation bilaterally, Normal air movement Cardiovascular: No edema, Regular rate/rhythm, Normal S1 S2, No gallops, No rubs, No murmurs Gastrointestinal: Normal bowel sounds, Soft and benign, Non-distended, No tenderness, No rebound, No guarding Musculoskeletal: No clubbing Integumentary: No rashes Neurological: Normal speech, Normal affect Assessment And Plan - Plan # Recent Right Molar Extraction compicated by Submandibular Abscess - concern for early Tayo's Angina - Evaluation thus far: - Does not currently meet sepsis criteria - CT soft tissue/neck = "abscess medially along the right aspect of the mandible near the location of the recently extracted molar. Some fluid tracks medially along the floor of the mouth which is concerning for early Tayo's angina. There is mass effect and mild narrowing of the airway at the posterior oropharynx" - Management plan: - Oromaxillofacial Surgery consulted and she was evaluated by Dr. Badillo - recommendations appreciated - S/P I&D of right submandibular abscess on 10/02 - Infectious Diseases consulted and spoke with Dr. Baez - recommendations appreciated - Continue vancomycin + cefepime for now - PRN pain control # Hypertension - Continue home nebivolol # Dyslipidemia - Continue home atorvastatin # Gastroesophageal Reflux Disease - Continue home pantoprazole # Microscopic Hematuria - Follow-up with PCP for further evaluation Pieter Escobar M.D.
[2022-10-03 13:17] VITALS: O2SAT 98
[2022-10-03] MEDS: MORPHINE 4 MG/ML SYR IV PRN (14:58)
[2022-10-03] MEDS: ACETAMINOPHEN 500 MG TAB PO PRN (20:41)
[2022-10-03] MEDS: DOXYCYCLINE 100 MG in NA CHLORIDE 0.9% 100 ML IVPB SCH (20:41)
[2022-10-03] MEDS ORDERED: ATORVASTATIN 10 MG TAB PO SCH (21:00)
[2022-10-04] MEDS: NA CHLORIDE 0.9% 1,000 ML IV SCH ×2 (00:36→06:07)
[2022-10-04 04:05] LABS: Absolute Lymphocytes (CBC) 4.7 K/uL (0.7-4.9); Hematocrit 28.7 % (36.0-45.0); Lymphocytes % 33.3 % (15.3-44.8); MCV 83.2 fL (80-100); MPV 7.4 fL (7.6-11.3); RBC Red Blood Cell Count 3.45 M/uL (3.86-4.86)
[2022-10-04] MEDS: AMPICILLIN/SULBACT 3 GM in NA CHLORIDE 0.9% 100 ML IVPB SCH (06:07)
--- NOTE | 2022-10-04 08:39 | P.PN ---
Date of Service: 10/04/22 Chief Complaint: Mandibular Abscess Subjective: No new changes No acute events reported overnight. Patient is A&Ox3, not in apparent distress. No new complaints at this time. Patient reports she is feeling well and pain is much better. at bedside. Current plan to d/c home on oral antibiotics once cleared. Physical Examination Temp Pulse Resp BP Pulse Ox 97.7 F 91 H 17 96/60 98 10/04/22 04:00 10/04/22 04:00 10/04/22 04:00 10/04/22 04:00 10/04/22 04:00 General: Alert, In no apparent distress, Oriented x3 HEENT: Atraumatic, Normocephalic, Other (antonella drain s/p mandibular abscess drainage) Respiratory: Clear to auscultation bilaterally, Normal air movement Cardiovascular: No edema, Normal pulses Capillary refill: <2 Seconds Gastrointestinal: Normal bowel sounds, Soft and benign, Non-distended Musculoskeletal: No clubbing, No swelling Integumentary: No rashes, No breakdown Neurological: Normal speech, Normal tone, Normal affect Studies Laboratory Data - Reviewed Microbiology Data - Blood cultures 10/01: no growth to date - Abscess culture mandibular: pending Imagings Data: - CT neck 10/01: "Abscess medially along the right aspect of the mandible near the location of the recently extracted molar. Some fluid tracks medially along the floor of the mouth which is concerning for early Tayo's angina. There is mass effect and mild narrowing of the airway at the posterior oropharynx." Medications List Reviewed: Yes Assessment and Plan Problem List - Abscess, right mandibular/submandibular - Hypertension - Hyperlipidemia Right Mandibular Abscess - s/p incision and drainage of right mandibular abscess 10/02 - Previously on Clindamycin 10/01-10/03 - Oromaxillofacial surgery on case - Currently on Unasyn (10/01-) and Doxycycline (10/03-) - Afebrile - Leukocytosis improving (WBC 23.3 -> 14.2) - Abscess Cultures 10/02: pending Recommendations - Continue IV Unasyn (10/01) and Doxycycline (10/03); switch to PO as tolerated - Abscess cultures pending - Monitor WBC and fever trends ID will follow up and monitor patient closely. Case discussed with Ellen Patel
[2022-10-04] MEDS ORDERED: PANTOPRAZOLE 40MG TABLET PO SCH (09:00)
[2022-10-04] MEDS ORDERED: NEBIVOLOL HCL 5 MG TAB PO SCH (09:00)
[2022-10-04] MEDS: ACETAMINOPHEN 500 MG TAB PO PRN (10:47)
[2022-10-04] MEDS: DOXYCYCLINE 100 MG in NA CHLORIDE 0.9% 100 ML IVPB SCH (11:57)
--- NOTE | 2022-10-04 13:51 | CON ---
Date of Consultation: 10/02/2022 Time Of Exam: 0740. Chief Complaint: "My jaw is swollen and I cannot open my mouth." History Of Present Illness: The patient is a 72-year-old female, who had presented to my clinic with a fracture in tooth #31 about 2 weeks ago. Tooth 31 was extracted on 09/23/2022 without any complic ation. The patient returned to the clinic on 09/28/2022, complaining of small limited opening and pa in in the right side of the mandible. Examination did not show any sign of infection at this time. The patient was prescribed clindamycin changing from amoxicillin and 2 doses of Decadron 4 mg daily. Her symptoms briefly improved. But she contacted the clinic on 10/01/2022 complaining of severe sub mandibular swelling, difficulty swallowing and difficulty opening her mouth. The patient was directe d to present to the emergency department at [facility] [place]. Physical Examination: General: The patient was examined at 0740 on 10/02/2022. Vital Signs: The patient was afebrile at that time, but had had a fever of 101.3 overnight. Her vit al signs were stable. HEENT: The patient was noted to have limited opening of the mandible with maximal opening to about 1 5 mm. There was visible extraoral swelling in the right lower face and submandibular area. The александр a is very firm, warm, and there was mild erythema in the overlying tissues. Intraorally, there was n o edema in the floor of the mouth to palpation. The extraction site appeared normal and there was ju st very mild edema lateral to the extraction site in the buccal vestibule. The patient cannot open h er mouth enough to really evaluate the oropharynx but she was breathing and swallowing without distre ss. Pertinent Laboratory Findings: Revealed a white blood cell count of 19,300. A CT scan had been obta ined when the patient presented to the emergency department. It showed a 3.4 x 2 cm abscess along th e right medial border of the mandible near the #31 extraction site. There was some cellulitis and ed roshan that was beginning to affect the airway in the submental area. Assessment: The patient has a right submandibular abscess. There is soft tissue cellulitis and александр a that could affect the airway. Plan: Patient will be taken to the operating room for incision and drainage of the right submandibul ar abscess. Cultures will be taken at the time of drainage. The patient will be continued on broad- spectrum antibiotics, clindamycin and Unasyn as already prescribed. ANKUR/VIOLETA Voice ID: [id number] Report ID: [id number]
--- NOTE | 2022-10-04 14:43 | P.DS ---
Admission Date: 10/01/22 Discharge Date: 10/04/22 Primary Care Provider: Luna Disposition: ROUTINE DISCHARGE Discharge Condition: GOOD Reason for Admission: Mandibular Abscess Consultations: 1. Oromaxillofacial Surgery 2. 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 Inga Magallanes is a pleasant 72-year-old female with a past medical history significant for hypertension, dyslipidemia, and gastroesophageal reflux disease who was admitted to the [facility] on 10/01/2022 for a submandibular abscess. She was admitted to the Medicine service. Upon further evaluation, her CT soft tissue/neck revealed, "abscess medially along the right aspect of the mandible near the location of the recently extracted molar. Some fluid tracks medially along the floor of the mouth which is concerning for early Tayo's angina. There is mass effect and mild narrowing of the airway at the posterior oropharynx." Oromaxillofacial Surgery was consulted and she was evaluated by Dr. Badillo. On 10/02/2022, she underwent incision and drainage of right submandibular abscess. She was monitored in the hospital and did well. Dr. Badillo has cleared her for discharge with the drain in place. He will follow-up with her in clinic and have the drain removed as an outpatient. Additionally, Infectious Diseases was consulted and she was evaluated by Dr. Baez. He has cleared her for discharge with a 14-day course of amoxicillin-clavulanate + doxycycline. Incidentally, she was found to have microscopic hematuria. She was counseled that this may represent an underlying urologic malignancy. She was advised to follow-up with her PCP as well as with a urologist for further evaluation. She verbalized understanding and agreed to make these appointments. On 10/04/2022, she was seen on rounds and deemed medically stable for discharge. She was discharged with instructions to schedule follow-up appointments with her PCP (Dr. Carrasco), with Oromaxillofacial Surgery (Dr. Badillo), and with Urology (Dr. Cronin). She was provided prescriptions for amoxicillin-clavulanate and doxycycline. She and her family members were given the opportunity to ask questions and reported no further questions. Furthermore, all questions were answered to the best of my ability. A copy of this discharge summary will be sent to the above providers to facilitate continuity of care. Today, I personally spent 25 minutes on her case, of which greater than 50% of the time was spent in patient education, counseling, and coordination of care as described above. - Physical Exam General: Alert, In no apparent distress, Oriented x3 HEENT: Atraumatic, Mucous membr. moist/pink, Other (right submandibular drain noted - site is clean, dry, intact), Sclerae nonicteric Respiratory: Clear to auscultation bilaterally, Normal air movement Cardiovascular: No edema, Regular rate/rhythm, No murmurs Gastrointestinal: Normal bowel sounds, Soft, Non-distended, No tenderness Musculoskeletal: No clubbing Integumentary: No rashes Neurological: Normal speech, Normal affect Vital Signs/Physical Exam: Temp Pulse Resp BP Pulse Ox 99.0 F 68 16 135/73 95 10/04/22 12:00 10/04/22 12:00 10/04/22 12:00 10/04/22 12:00 10/04/22 12:00 Laboratory Data at Discharge: WBC 14.20 thou/uL (4.3-10.9) H 10/04/22 03:55 Hgb 9.3 g/dL (12.0-15.0) L D 10/04/22 03:55 Hct 28.7 % (36.0-45.0) L 10/04/22 03:55 Plt Count 395 thou/uL (152-406) 10/04/22 03:55 Sodium 138 mEq/L (136-145) 10/02/22 05:16 Potassium 3.9 mEq/L (3.5-5.1) 10/02/22 05:16 BUN 11 mg/dL (7-18) 10/02/22 05:16 Creatinine 0.70 mg/dL (0.55-1.02) 10/02/22 05:16 Glucose 122 mg/dL (74-106) H 10/02/22 05:16 Phosphorus 3.1 mg/dL (2.5-4.9) 10/02/22 05:16 Magnesium 2.2 mg/dL (1.6-2.4) 10/02/22 05:16 Total Bilirubin 0.5 mg/dL (0.2-1.0) 10/01/22 18:41 AST 14 U/L (15-37) L 10/01/22 18:41 ALT 19 U/L (13-56) 10/01/22 18:41 Alkaline Phosphatase 84 U/L (45-117) 10/01/22 18:41 Home Medications: Pantoprazole [Protonix Tab*] 40 mg PO DAILY 08/21/16 Atorvastatin Calcium [Lipitor*] 10 mg PO BEDTIME 10/01/22 Nebivolol HCl [Bystolic*] 5 mg PO DAILY 10/01/22 Amox/Clavulanate [Augmentin 875-125 Tab] 875 mg PO BID 14 Days #28 tab 10/04/22 Doxycycline Hyclate 100 mg PO BID 14 Days #28 tab 10/04/22 New Medications: Amox/Clavulanate [Augmentin 875-125 Tab] 875 mg PO BID 14 Days #28 tab Doxycycline Hyclate 100 mg PO BID 14 Days #28 tab Physician Discharge Instructions: 1. Please call and schedule a follow-up appointment with your PCP (Dr. Carrasco) in 3-5 days 2. Please call and schedule a follow-up appointment with Oromaxillofacial Surgery (Dr. Badillo) in 3-5 days - He will remove the drain at your appointment 3. Please call and schedule a follow-up appointment with Urology (Dr. Cronin) in 3-5 days - You were found to have a small amount of blood in your urine. As we discussed, this can be an early sign of bladder/kidney cancer. Please follow-up with Urology for further evaluation. Diet: AHA Activity: Ad mulugeta Followup: Paul Badillo DDS, MD [ACTIVE - CAN ADMIT] - Gay Carrasco MD [ACTIVE - CAN ADMIT] - Enio Cronin [ACTIVE - CAN ADMIT] - Time spent managing pt's care (in minutes): 25
--- NOTE | 2022-10-04 15:12 | PN ---
Date of Progress Note: 10/03/2022 Time Of Exam: 0750 on 10/03/2022. Subjective: The patient states that she is feeling much better today and is able to take some soft p .o. foods and liquids without difficulty. Objective: The patient has been afebrile over the past 24 hours and has stable vital signs. The pat srinivas's white blood cell count is 19,300, unchanged over the past 24 hours. The patient has much less submandibular edema this morning and she can open her mouth to about 20 mm without pain. There was small amount of seropurulent drainage from the [place] drain. The dressing has been changed multiple times over the past 24 hours. There was still some firm swelling around the drain and around the benavidez bmandibular space. The floor mouth is soft. Oropharynx has no edema. Assessment: The patient is improving following drainage of the right submandibular abscess. Plan: The patient will continue on IV clindamycin and IV Unasyn. Cultures are pending. The patient will be re-evaluated tomorrow. ANKUR/VIOLETA Voice ID: [id number] Report ID: [id number]
--- NOTE | 2022-10-04 15:46 | OP ---
Date of Procedure: 10/02/2022 Surgeon: Paul Badillo DDS, MD Electrical Engineering Manager: Staff. Preoperative Diagnosis: Right submandibular abscess. Postoperative Diagnosis: Postoperative Diagnosis Procedure: Incision and drainage of the right submandibular abscess. Estimated Blood Loss: Less than 5 cc. Anesthesia: General anesthesia. Fluids: 400 cc LR. Drains: Quarter-inch Jenny drain via extraoral incision on the right side of the neck. Findings: Approximately 2.5 cc of greenish yellow pus drained from the right submandibular space. Specimen: Sent for microbiology. Complications: None. History Of Present Illness: The patient is a 72-year-old female, who developed a right submandibular abscess about 8 days after the extraction of tooth #31. The patient was hospitalized on 10/01/2022 and IV antibiotics were begun. The patient's white blood cell count is 23,000 and she has been febri le. CT scan revealed right submandibular abscess with cellulitis and tissue changes that were beginn ing to impinge on the airway. Procedure In Detail: The patient was taken to the operating room and placed on the table in the supi ne position. General anesthesia was begun and a laryngeal mask airway was placed. The patient was t hen prepped and draped in the normal sterile fashion. A 2 cc of a mixture of 1% lidocaine with 1:100 ,000 epinephrine and 0.5% Marcaine was injected in the skin just under the angle of the mandible. A 1.5 cm incision was made in the skin on the right side of the neck approximately 2.5 cm below the inf erior border of the mandible near the angle of the mandible. A large hemostat was used to bluntly di ssect through the soft tissues towards the angle of the mandible. Once the hemostat was introduced i nto the submandibular space, pus was encountered. The pus draining from the wound was submitted for culture, both aerobic and anaerobic. Further blunt dissection yielded about 2.0 cc of yellow green p us. An Angiocath and syringe were used to irrigate the wound with copious amounts of saline solution . A quarter-inch [place] drain was introduced into the wound and end of the drain was carried to the submandibular space near the inferior border of the mandible using the long hemostats. The drain wa s sutured in place to the skin using a single 2-0 silk suture. The patient was awakened from general anesthesia and laryngeal mask airway was removed in the operating room. A 4 x 4 gauze dressing was placed over the drain. The patient was transported to the recovery room in stable and satisfactory c ondition. ANKUR/VIOLETA Voice ID: [id number] Report ID: [id number]
[2022-10-04 16:36] VITALS: BP 166/72; TEMP 98.2
--- NOTE | 2022-10-04 20:49 | PN ---
Subjective: "I'm feeling much better today and having a good day." Objective: VITAL SIGNS: The patient has been afebrile with stable vital signs. Laboratory Data: The patient's white blood cell count has diminished to about 14,000. On exam, the patient has almost no submandibular edema or erythema. The floor of the mouth is soft. The patient still has mild trismus opening out to about 25 mm. The patient is taking p.o. intake wi thout difficulty swallowing. The [place] drain is in place and there is only a scant amount of serop urulent drainage. Assessment: The patient has had an excellent response to incision and drainage of the right submandi bular abscess and IV antibiotics. Culture results are still pending for the anaerobic culture. I wi ll recommend discharge with oral antibiotic treatment. Augmentin will be prescribed combined with cl indamycin that the patient already has. Followup will be arranged within 48 hours of discharge to ma nage the Jenny drain and re-evaluate the patient. AUREAF/MODL Voice ID: [id number] Report ID: [id number]
== END 2022-10-04 16:52 | disposition home or self-care (01) | DRG 863 ==
LOC: ER 17:43 → 2ND 21:15
PROVIDERS: ADMIT Internal Medicine Sleep Medicine; ATTEND Internal Medicine
PROC: 0J9100Z Drainage of Face Subcutaneous Tissue and Fascia with Drainage Device, Open Approach (ICD-10-PCS; principal; 2022-10-02 10:00)
DX: T81.49XA Infection following a procedure, other surgical site, initial encounter (principal); K12.2 Cellulitis and abscess of mouth; R31.29 Other microscopic hematuria; I10 Essential (primary) hypertension; E78.5 Hyperlipidemia, unspecified; K21.9 Gastro-esophageal reflux disease without esophagitis; F32.A Depression, unspecified; Z79.899 Other long term (current) drug therapy; Z88.3 Allergy status to other anti-infective agents; Z82.49 Family history of ischemic heart disease and other diseases of the circulatory system; Z82.0 Family history of epilepsy and other diseases of the nervous system
CPT/HCPCS: 36415; 70491; 80048; 80053; 81001; 83605; 83735; 84100; 85025; 87040; 87070; 87075; 87205; 96374; 96375; 99284; J0295; J1100; J2405; J2704; J3010; J7030; J7120; Q9967